=== PATIENT | female | born 1990 | race Caucasian/White ===

== ENCOUNTER 2023-06-11 09:16 | Emergency (ER) | payer OTHER ==
[~2023-06-11] VITALS: Ht 157.5 cm; Wt 104.3 kg
[2023-06-11 09:20] VITALS: BP_SYST 123; PULSE 80; RESP 16; TEMP 97.1; O2SAT 100
[2023-06-11] MEDS ORDERED: EPINEPHRINE HCL/PF 1 MG/ML AMP IM ONE (09:45)
[2023-06-11] MEDS ORDERED: EPIN0.3P3 IM (10:53)
[2023-06-11 11:34] VITALS: BP_SYST 102; PULSE 76; RESP 21; TEMP 97.5; O2SAT 98
[2023-06-11] MEDS ORDERED: FAMOTIDINE PF 20 MG/2 ML VIAL ONE (14:45)
== END 2023-06-11 11:15 | disposition home or self-care (01) ==
LOC: SED 09:16
DX: T78.40XA Allergy, unspecified, initial encounter (principal); Z88.1 Allergy status to other antibiotic agents; Z79.899 Other long term (current) drug therapy; X58.XXXA Exposure to other specified factors, initial encounter
CPT/HCPCS: 99283; 96372; J0171; J3490